=== PATIENT | female | born 1985 | race Caucasian/White ===

== ENCOUNTER → 2018-08-08 10:12 | Outpatient (CLI) | payer OTHER, SELFPAY ==
--- NOTE | 2018-08-08 10:15 | RAD_ITS ---
STUDY: X-RAY - RIGHT WRIST REASON FOR EXAM: Wrist pain. TECHNIQUE: 3 view(s) of the wrist were obtained. COMPARISON: None. FINDINGS: Normal visualized distal radius and ulna. Normal radiocarpal articulation. Normal distal radioulnar articulation. Normal carpal bones. Normal carpal articulations. Normal carpometacarpal articulation of the thumb. Normal second through fifth carpometacarpal articulations. Normal visualized metacarpal bones. The soft tissue structures are unremarkable. RAD/Wrist min 3 Views IMPRESSION: Normal x-ray examination of the right wrist. Electronically Signed: Octaviano Ko MD at 13:17 EDT Tel , Service support ,
== END ==
PROVIDERS: Referring Provider Orthopaedic Surgery; Visit Provider Orthopaedic Surgery
DX: M25.531 Pain in right wrist (principal)
CPT/HCPCS: 73110

== ENCOUNTER → 2019-01-03 16:49 | Outpatient (CLI) | payer MEDICAID, SELFPAY ==
[2018-01-04 10:13] VITALS: BMI 29.8
[2019-01-03 20:41] LABS: Chlamydia Trachomatis by PCR Negative (Negative); Neisserai gonorrhoeae by PCR Negative (Negative); Probe Check PASS; Sample Adequacy Control PASS; Specimen Processing Control PASS
== END ==
PROVIDERS: Visit Provider Obstetrics & Gynecology
DX: Z11.3 Encounter for screening for infections with a predominantly sexual mode of transmission (principal)
CPT/HCPCS: 87491; 87591

== ENCOUNTER → 2019-07-10 | Outpatient (CLI) | payer MEDICAID, SELFPAY ==
[2018-01-04 10:13] VITALS: BMI 29.8
== END | disposition home or self-care (01) ==
LOC: LABSPEC 14:58
PROVIDERS: Visit Provider Obstetrics & Gynecology
DX: Z12.4 Encounter for screening for malignant neoplasm of cervix (principal)

== ENCOUNTER → 2019-08-08 | Outpatient (CLI) | payer MEDICAID, SELFPAY ==
[2018-01-04 10:13] VITALS: BMI 29.8
--- NOTE | 2019-08-08 | IMM_PTH ---
PATIENT: DOUG HOYT LOC: [facility] U#:[id number] AGE/SX: 33/F ROOM: RE08/08/[address]: Dr. 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 Localization is made via biotin free immunoperoxidase method. Appropriate controls are performed and reacted as expected. Results on target cell population are indicated in the following table: RESULTS: ANTIBODY / CLONE RESULT Block A P16 (E6H4) positive, rare cell Ki-67 (30-9) negative These tests were developed and their performance characteristics determined by [facility]. They may not have been cleared or approved by the U.S. Food and Drug Administration. The FDA has determined that such clearance or approval is not necessary. The above immunohistochemical/dualISH markers are ordered and reviewed by the pathologist. INTERPRETATION: A. Cervix, biopsy: Suspicious for focal HPV change. AM:tao 08/10/19
--- NOTE | 2019-08-08 11:15 | CER_PTH ---
PATIENT: DOUG HOYT LOC: [facility] U#:[id number] AGE/SX: 33/F ROOM: RE08/08/[address]: Dr. 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 Cervix, biopsy: Focal HPV change suspected. Squamous metaplasia and mild chronic inflammation. See comment. B. Endocervix, curettings: Strips of benign superficial endocervix. No evidence of dysplasia. AM:tao 08/10/19 COMMENT A. Results from immunohistochemistry ([id number]) for surrogate HPV marker (p16) will be reported separately. MICROSCOPIC DESCRIPTION Slides are reviewed. GROSS DESCRIPTION A - Received in fixative is one container labeled with the patient's name and designated cervical. The specimen consists of one irregular fragment of light rebolledo soft tissue that measures 0.5 x 0.3 x 0.1 cm. The specimen is totally submitted in one cassette. B - Received in fixative is one container labeled with the patient's name and designated ECC. The specimen consists of multiple fragments of hemorrhagic mucoid tissue that in aggregate measure 1.5 x 1 x 0.2 cm. The specimen is totally submitted in one cassette. / SJ:tao 08/09/19 TC: CPT: 63872 x2
== END | disposition home or self-care (01) ==
LOC: LABSPEC 16:13
PROVIDERS: Referring Provider Obstetrics & Gynecology; Visit Provider Obstetrics & Gynecology
DX: R87.612 Low grade squamous intraepithelial lesion on cytologic smear of cervix (LGSIL) (principal)
CPT/HCPCS: 88305; 88341; 88342

== ENCOUNTER → 2019-12-25 | Outpatient (CLI) | payer MEDICAID, SELFPAY ==
[2018-01-04 10:13] VITALS: BMI 29.8
[2019-12-28 14:08] LABS: Age Gdln ACOG Testing 30-65 (.)
[2019-12-28 15:18] LABS: HPV APTIMA, High Risk Negative (Negative)
[2019-12-28 15:19] LABS: HPV Reflexed? YES, CHARGE PATIENT
== END | disposition home or self-care (01) ==
LOC: LABSPEC 13:44
PROVIDERS: Visit Provider Obstetrics & Gynecology
DX: R87.612 Low grade squamous intraepithelial lesion on cytologic smear of cervix (LGSIL) (principal)
CPT/HCPCS: 87624; 88175; G0145

== ENCOUNTER → 2021-02-02 14:25 | Outpatient (CLI) | payer MEDICAID, SELFPAY ==
[2018-01-04 10:13] VITALS: BMI 29.8
[2021-02-06 16:00] LABS: HPV APTIMA, High Risk Negative (Negative)
== END ==
PROVIDERS: Visit Provider Obstetrics & Gynecology
DX: Z12.4 Encounter for screening for malignant neoplasm of cervix (principal)
CPT/HCPCS: 87624; 88175; G0145

== ENCOUNTER → 2021-04-16 16:45 | Outpatient (CLI) | payer MEDICAID, SELFPAY ==
[2018-01-04 10:13] VITALS: BMI 29.8
[2021-04-17 09:30] LABS: HIV - WCH Non-Reactive (Nonreactive); Hepatitis B Surface Antibody Non-Reactive; Hepatitis C Antibody Non-Reactive (Nonreactive); Syphilis Antibodies Non-reactive
[2021-04-19 20:07] LABS: Chlamydia By Nucleic Acid AMP Negative (Negative)
[2021-04-20 08:29] LABS: Gonococcus By Nucleic Acid AMP Negative (Negative)
== END ==
PROVIDERS: Visit Provider Obstetrics & Gynecology
DX: Z11.3 Encounter for screening for infections with a predominantly sexual mode of transmission (principal)
CPT/HCPCS: 36415; 86703; 86706; 86780; 86803; 87491; 87591

== ENCOUNTER → 2022-04-06 | Outpatient (CLI) | payer MEDICAID, SELFPAY ==
[2022-04-09 08:21] LABS: HPV APTIMA, High Risk Negative (Negative)
== END | disposition home or self-care (01) ==
LOC: LABSPEC 11:23
PROVIDERS: Visit Provider Obstetrics & Gynecology
DX: Z12.4 Encounter for screening for malignant neoplasm of cervix (principal)
CPT/HCPCS: 87624; 88175; G0145

== ENCOUNTER → 2025-01-09 | Outpatient (CLI) | payer MEDICAID, SELFPAY ==
--- NOTE | 2025-01-09 15:40 | BI_ITS ---
PROCEDURE: SCRN MAMM (CAD)W/SARA BILAT REASON FOR EXAM: F, Age 39 y/o , mother with breast cancer. Routine annual follow-up. TECHNIQUE: Bilateral screening digital breast tomosynthesis with 2D and 3D images. Computer aided detection. COMPARISON: Prior exam(s) dating back to February 07, 2014. FINDINGS: The breasts are heterogeneously dense which may obscure small masses. Stable examination. Stable small bilateral axillary lymph nodes. No suspicious masses, areas of developing architectural distortion, or suspicious calcifications. BI/SCRN MAMM (CAD)W/SARA BILAT IMPRESSION: BI-RADS 2: BENIGN. RECOMMEND ANNUAL MAMMOGRAPHIC SCREENING. Follow-up code: Routine Follow-up The patient will be notified of the results by letter. Reading Location: [id number]
== END | disposition home or self-care (01) ==
LOC: OPBI 15:37
PROVIDERS: Referring Provider Family Medicine; Visit Provider Family Medicine
DX: Z12.31 Encounter for screening mammogram for malignant neoplasm of breast (principal)
CPT/HCPCS: 77063; 77067

== ENCOUNTER → 2025-09-23 | Outpatient (CLI) | payer MEDICAID, SELFPAY ==
--- OUTSIDE RECORDS SUMMARY | 2025-09-23 19:16 | XMS RPT_ITS | CCD ---
Author Organization [facility] Care Team Providers Care Gravity Prospector Name Role Phone DAVID ROBERTS Attending DAVID Woods Consulting DAVID Woods Primary Care Unavailable DAVID ROBERTS Admitting Unavailable PROVIDER, UNKNOWN Consulting David Altamirano Referring Unavailable David Cerna Attending Unavailable Care Physician, No Primary Primary Care Unava ilable Care Physician, No Primary Primary Care Provider David Woods PA-C Attending Provider David Roberts PA-C Referring Provider [phone] Allergies Allergy Classification Reported Allergen(s) Allergy Type Date of Onset Reaction(s) Facility (2 sources) Amoxicillin Drug Allergy 8 skin rash [facility] (2 sources) Clavulanate Drug Allergy 8 skin rash [facility] (1 source) medical tape Allergy to substance 8 mild irritation [facility] Work Phone: (1 source) Amoxicillin Drug Allergy 8 [facility] (1 source) Clavulanate Drug Allergy 8 [facility] Medications Current Medications Medication Drug Class(es) Dates Sig (Normalized) Sig (Original) acyclovir 400 mg oral tablet (2 sources) Herpesvirus Nucleoside Analog DNA Polymerase Inhibitor, Herpes Simplex Virus Nucleoside Analog DNA Polymerase Inhibitor, Herpes Zoster Virus Nucleoside Analog DNA Polymerase Inhibitor Start: 12-27-2017 take 400 mg by mouth once daily Acyclovir Active 400 MG PO daily December 27, 2017 3:29pm clindamycin 300 mg oral capsule (2 sources) Lincosamide Antibacterial Start: 01-04-2018 take 1 capsule by mouth three times daily Clindamycin Hcl (Cleocin Hcl) 300 mg capsule Active 300 MG PO THREE TIMES A DAY 42 January 04, 2018 11:43am Norethindrone-E.Es tradiol-Iron (2 sources) Estrogen Start: 12-27-2017 take 1 tablet by mouth once daily Norethindrone-E.E stradiol-Iron (Microgestin Fe 1.5/30 (28)) 1.5 mg-30 mcg (21)/75 mg (7) tablet Active 1 TABLET PO daily December 27, 2017 3:30pm Start: 12-27-2017 take 1 tablet by mark th once daily Norethindrone-E.Estradiol-Iron (Microges tin Fe 1.5/30 (28)) 1.5 mg-30 mcg (21)/75 mg (7) tablet Active 1 {tbl} PO daily December 27, 2017 1:00am hydroCHLOROthiazide 50 mg oral tablet (2 sources) Thiazide Diuretic Start: 12-27-2017 take 50 mg by mouth once daily in the morning Hydrochlorothiazide Active 50 MG PO EVERY MORNING December 27, 2017 3:27pm metoprolol tartrate 100 mg oral tablet (2 sources) beta-Adrenerg ic Rachael Start: 12-27-2017 take 100 mg by mouth once daily Metoprolol Tartrate Active 100 MG PO daily December 27, 2017 3:26pm potassium chloride 10 meq extended release oral tablet (2 sources) Start: 12-27-2017 Potassium Chloride (Klor-Con 10) 10 mEq tablet extended release Active 10 MEQ PO daily December 27, 2017 3:24pm thyroid (retirement) 15 mg oral tablet (2 sources) Start: 12-27-2017 take 1 tablet by mouth once daily Thyroid (Pork) (Dampener Operator Thyroid) 15 mg tablet Active 15 MG PO daily December 27, 2017 3:28pm Problems Problem Classification Problem Date Documented Date Episodic/Chronic Nonmalignant breast conditions (4 sources) Lump of subareolar area of left breast; Translations: [Unspecified lump in left breast, subareolar] 01-04-2018 Episodic Comment on above: retroareolar area Other screening for suspected conditions (not mental disorders or infectious disease) (3 sources) Encounter for screening for diabetes mellitus; Translations: [Encounter for screening for cardiovascular disorders] Onset: 01-03-2025 Episodic Screening and history of mental health and substance abuse codes (2 sources) Ex-smoker; Translations: [Personal history of nicotine dependence] 04-10-2018 Episodic Results Test Name Value Interpretation Reference Range Facil ity Breast imaging reportOrdered By: Jesús Merrill on 01-10-2025 Study report [facility] Imaging Services [address] [place], [place] [id number] SCRN MAMM (CAD)W/SARA BILAT MR#: [id number] Acct: [id number] Name: DOUG HOYT Rep #: [id number] : 1985 F 39 From: John Merrill MD PCP: Care Physician,No Primary Status: REG CLI Study:SCRN MAMM (CAD)W/SARA BILAT Date of Exa m: 01/09/25 Exam# [id number] Ordering Dr: Deejay Roberts PA-C ADDENDUM by Dr. Jesús Merrill MD on 01/10/25 at 1347 No addendum needed. Reading Location: [id number] 01/10/25 1347 Date cc: MANDI Roberts; No Primary Care Physician ~* Signed PROCEDURE: SCRN MAMM (CAD)W/SARA BILAT REASON FOR EXAM: F, Age 39 y/o , mother with breast cancer. Routine annual follow-up. TECHNIQUE: Bilateral screening digital breast tomosynthesis with 2D and 3D images. Computeraided detection. COMPARISON: Prior exam(s) dating back to February 07, 2014. FINDINGS: The breasts are heterogeneously dense which may obscure small masses. Stable examination. Stable small bilateral axillary lymph nodes. No suspicious masses, areas of developing architectural distortion, or suspicious calcifications. BI/SCRN MAMM (CAD)W/SARA BILAT IMPRESSION: BI-RADS 2: BENIGN. RECOMMEND ANNUAL MAMMOGRAPHIC SCREENING. Follow-up code: Routine Follow-up The patient will be notified of the results by letter. Reading Location: [id number] CC: MANDI Roberts; No Primary Care Physician ~ Automation Qa Lead: Signed [facility] SCRN MAMM (CAD)W/SARA BILATo n 01-09-2025 SCRN MAMM (CAD)W/SARA BILAT [facility] Imaging Services [address] [place] [address] SCRN MAMM (CAD)W/SARA BILAT MR#: [id number] Acct: [id number] Name: DOUG HOYT Rep #: [id number] : 1985 F 39 From: Jesús tavera MD PCP: Care Physician,No Primary Status: REG CLI Study: SCRN MAMM (CAD)W/SARA BILAT Date of Exam: 03/31 Exam# [id number] Ordering Dr: David Roberts ADDENDUM by Dr. Jesús Merrill MD on 01/10/25 at 1347 No addendum needed. Reading Location: [id number] 01/10/25 1347 Date cc: MANDI Roberts; No Primary Care Physician * Signed PROCEDURE: SCRN MAMM (CAD)W/SARA BILAT REASON FOR EXAM: F, Age 39 y/o , mother with breast cancer. Routine annual follow-up. TECHNIQUE: Bilateral screening digital breast tomosynthesis with 2D and 3D images. Computer aided detection. COMPARISON: Prior exam(s) dating back to February 07, 2014. FINDINGS: The breasts are heterogeneously dense which may obscure small masses. Stable examination. Stable small bilateral axillary lymph nodes. No suspicious masses, areas of developing architectural distortion, or suspicious calcifications. BI/SCRN MAMM (CAD)W/SARA BILAT IMPRESSION: BI-RADS 2: BENIGN. RECOMMEND ANNUAL MAMMOGRAPHIC SCREENING. Follow-up code: Routine Follow-up The patient will be notified of the results by letter. Reading Location: [id number] CC: MANDI Roberts; No Primary Care Physician Automation Qa Lead: Signed Normal [facility] CMP with eGFRon 01-03-2025 AGE 39 years Normal [facility] Comment on above: Performed By: #### 2 [id number] #### [facility],[address] [place] [address] 19538 Albumin [Mass/Vol] 3.9 g/dL Normal 3.4 - 5.0 [facility] Comment on above: Performed By: #### 2 20563 #### [facility],[address] [place] [address] 45789 Albumin/Globulin [Mass ratio] 1.2 {ratio} Normal 0.9 - 1.6 [facility] Comment on above: Performed By: #### 2 92017 #### [facility],[address] [place] [address] 12556 ALK PHOS 57 U/L Normal 46 - 116 [facility] Comment on above: Performed By: #### 2 05574 #### [facility],[address] [place] [address] 75602 ALT [Catalytic activity/Vol] 33 U/L Normal 16 - 63 [facility] Comment on above: Performed By: #### 2 74075 #### [facility],[address] [place] [address] 31377 Anion gap [Moles/Vol] 13 mmol/L Normal 10 - 20 [facility] Comment on above: Performed By: #### 2 18446 #### [facility],[address] [place] [address] 94634 AST [Catalytic activity/Vol] 25 U/L Normal 13 - 39 [facility] Comment on above: Performed By: #### 2 63638 #### [facility],[address] [place] [address] 94595 B/C RATIO 13 ratio Normal 0 - 30 [facility] Comment on above: Performed By: #### 2 59906 #### [facility],[address] [place] [address] 78165 Bilirubin [Mass/Vol] 0.5 mg/dL Normal 0.2 - 1.0 [facility] Comment on above: Performed By: #### 2 58532 #### [facility],[address] [place] [address] Calcium [Mass/Vol] 9.5 mg/dL Normal 8.5 - 10.1 [facility] Comment on above: Performed By: #### 2 67845 #### [facility],[address] [place] [address] Chloride [Moles/Vol] 102 mmol/L Normal 98 - 107 [facility] Comment on above: Performed By: #### 2 20605 #### [facility],[address] [place] [address] CMP with eGFR Normal [facility] Comment on above: Result Comment: COMP REHENSIVE METABOLIC PANEL Performed By: #### 2 20021 #### [facility],[address] [place] [address] CO2 [Moles/Vol] 29.3 mmol/L Normal 21.0 - 32.0 [facility] Comment on above: Performed By: #### 2 22629 #### [facility],[address] [place], [place] [address] Creatinine [Mass/Vol] 0.78 mg/dL Normal 0.55 - 1.02 [facility] Comment on above: Performed By: #### 2 61901 #### [facility],[address] [place], [place] [address] GFR/1.73 sq M.predicted among non-blacks MDRD (S/P/Bld) [Vol rate/Area] mL/min/{1.73_m2} Normal 60 - 999 [facility] Comment on above: Performed By: #### 2 79933 #### [facility],[address] [place] [address] Result Comment: ACCO RDING TO THE NATIONAL KIDNEY DISEASE EDUCATION PROGRAM(NKDE), A NORMAL eGFR IS A VALUE GREATER THAN OR EQUAL TO 60 ML/MIN/1.73 SQ METERS. CHRONIC KIDNEY DISEASE: <60mL/MIN/1.73 SQ METERS KIDNEY FAILURE: <15mL/MIN/1.73 SQ METERS THIS TEST SHOULD ONLY BE USED FOR PATIENTS 18 YEARS OF AGE AND OLDER. Globulin (S) [Mass/Vol] 3.3 g/dL Normal 1.5 - 3.8 [facility] Comment on above: Performed By: #### 2 90123 #### [facility],[address] [place] [address] 90116 Glucose [Mass/Vol] 95 mg/dL Normal 74 - 106 [facility] Comment on above: Performed By: #### 2 02618 #### [facility],[address] [place] [address] 63491 Potassium [Moles/Vol] 3.4 mmol/L Low 3.5 - 5.1 [facility] Comment on above: Performed By: #### 2 38167 #### [facility],[address] [place] [address] 12401 Protein [Mass/Vol] 7.2 g/dL Normal 6.4 - 8.2 [facility] Comment on above: Performed By: #### 2 53259 #### [facility],[address] [place] [address] 62300 Sodium [Moles/Vol] 141 mmol/L Normal 136 - 145 [facility] Comment on above: Performed By: #### 2 42610 #### [facility],[address] [place] [address] 70164 Urea nitrogen [Mass/Vol] 10 mg/dL Normal 7 - 18 [facility] Comment on above: Performed By: #### 2 61777 #### [facility],[address] [place] [address] 24025 LIPID PROFILEon 01-03-2025 Cholesterol [Mass/Vol] 183 mg/dL Normal 0 - 240 [facility] Comment on above: Performed By: #### 2 23691 #### [facility],[address] [place] [address] 06436 Cholesterol in HDL [Mass/Vol] 45 mg/dL Normal 40 - 60 [facility] Comment on above: Performed By: #### 2 37381 #### [facility],[address] [place] [address] 40612 Cholesterol in LDL [Mass/Vol] 112 mg/dL Normal 0 - 129 [facility] Comment on above: Performed By: #### 2 70933 #### [facility],[address] [place] [address] 18936 Cholesterol.total/C holesterol in HDL [Mass ratio] 4.1 {ratio} Normal 0.0 - 5.0 [facility] Comment on above: Performed By: #### 2 04834 #### [facility],[address] [place] [address] 05510 Lipid 1996 panel Normal [facility] Comment on above: Result Comment: LIPI D PROFILE Performed By: #### 2 48525 #### [facility],[address] [place] [address] 26391 Triglyceride [Mass/Vol] 132 mg/dL Normal 0 - 150 [facility] Comment on above: Performed By: #### 2 02113 #### [facility],[address] [place] [address] 14368 Cervical or vagninal specime n microscopic examination by cytology stain (reported ason 04-06-2022 Cytology report Cyto stain Doc (Cvx/Vag) Comment [facility] Work Phone: Comment on above: The Pap smear is a s creening test designed to aid in thedetection of premalignant and malignant conditions of theuterine cervix. It is not a diagnostic procedure andshould not be used as the sole means of detecting cervicalcancer. Both false-positive and false-negative reports dooccur. Detection in cervical specim en of any of human papilloma virus (HPV) 16, 18, 31, 33,on 04-06-2022 HPV 16+18+31+33+35+39+4 5+51+52+56+58+59+66 +68 DNA Probe+sig amp Ql (Cvx) Negative Negative [facility] Work Phone: Comment on above: This nucleic acid am plification test detects fourteen high- risk HPV types (16,18,31,33,35,39,45,51,52,56,58,59,66,68)without differentiation.Performed at: [facility] [id number] Director: Heydi Molina MD, Phone: [phone] at: =G - [facility] [id number] Director: Heydi Molina MD, Phone: [phone] Laboratory - Cytologyon 03-09 Extended Insurance Clerk Cyto stain Nom (Cvx/Vag) [ID] Comment [facility] Work Phone: Comment on above: Cely Robert, Cyto technologist (ASCP) Laboratory - Miscellaneous t estson 04-06-2022 Service comment (Unsp spec) [Interp] Comment [facility] Work Phone: Comment on above: This liquid based Th inPrep(R) pap test was screened withthe use of an image guided system. Service comment (Unsp spec) [Interp] . [facility] Work Phone: No Panel Informationon 04-06 Pathology report final diagnosis Narrative Comment [facility] Work Phone: Comment on above: NEGATIVE FOR INTRAEP ITHELIAL LESION OR MALIGNANCY.PREDOMINANCE OF COCCOBACILLI CONSISTENT WITH SHIFT IN VAGINAL NEREIDA ISPRESENT.CELLULAR CHANGES ASSOCIATED WITH INFLAMMATION ARE PRESENT. Encounters Encounter Date Encounter Type Care Provider Facility Start: 01-09-2025 End: 01-09-2025 ambulatory No Primary Care Physician [facility] Work Phone: Start: 01-09-2025 End: 01-09-2025 Patient encounter procedure David Roberts PA-C -[facility] Work Phone: Start: 01-09-2025 End: 01-09-2025 ambulatory [facility] Facility:[facility] Start: 01-03-2025 End: 01-03-2025 ambulatory [facility] Start: 04-06-2022 End: 04-06-2022 Patient encounter procedure [facility]-Laboratory, Specimen Procedures Date Procedure Procedure Detail Performing Clinician Start: 01-09-2025 Screening mammography N o Primary Care Physician Payers Date Payer Category Payer Self-pay [id number] 2021 Medicaid [id number] 1985 Unknown [id number] Unknown [id number] Unknown [id number] Unknown [id number] Social History Date Type Detail Facility [facility]: [facility]07-[facility] Work Phone: Start: 1985 Sex Assigned At Female [facility] Start: 09-07-2018 [facility] Start: 01-19-2025 Sex Female (finding) [facility] Clinical Note 04-06-2022 Note Date & Type Note Facility 04-06-2022 Note [facility] Work Phone: Pap Smear Specimen Adequacy April 06, 2022 11:10am Comment Satisfactory for evaluation. Endocervical and/or squamous metaplasticcells (endocervical component) are present. Comment on above: Satisfactory for robin luation. Endocervical and/or squamous metaplasticcells (endocervical component) are present. Evaluation note Note Date & Type Note Facility Evaluation note No assessment information availa ble [facility] Work Phone: Reason for referral (narrative) Note Date & Type Note Facility Reason for referral (narrative) No reason for referral information available [facility] Work Phone: Family History Relationship Condition Age at Onset Recorded Date/T yudi mother Diabetes mellitus Unknown uncle Complication of anesthesia Unknown aunt Arthritis Unknown Diabetes mellitus Unknown grandmother Arthritis Unknown Hypertension Unknown Malignant melanoma Unknown Summary Purpose Advance Directives No Advanced Directives Records FoundNo Advanced Directives Records Found Chief Complaint and Reason for Visit Chief Complaint Admit Date SCREENING January 09, 2025 3:03 pm Additional Source Comments Goals (unrecognized section and content) Goals may be documented in a n alternate sectionGoals may be documented in an alternate section INFORMATION SOURCE (unrecogn ized section and content) DATE CREATED AUTHOR 01/03/2025 [facility] DATE CREATED AUTHOR AUTHOR'S ORGANIZ ATION 01/22/2025 [facility] Care Teams (unrecognized sec tion and content) Team Status: Active Member Role Status Dates No Primary Care Physician Primary Care Provider Active Team Status: Inactive Member Role Status Dates No Primary Care Physician Primary Care Provider Active Start: January 09, 2025 End: January 09, 2025 Davidfritz SANTOS PA-C Attending Provider Active Start: January 09, 2025 End: January 09, 2025 [facility] MANDI SANTOS Referring Provider Active Start: January 09, 2025 End: January 09, 2025 FOR RECORDS PERTAINING TO PATIENTS WHO ARE OR HAVE BEEN ENROLLED IN A CHEMICAL DEPENDENCY/SUBSTANCEABUSE PROGRAM, SOME INFORMATION MAY BE OMITTED. This clinical summary was aggregated from multiple sources. Caution should be exercised in using it in the provision of clinical care. This summary normalizes information from multiple sources, and as a consequence, information in this document may materially change the coding, format and clinical context of patient data. In addition, data may be omitted in some cases. CLINICAL DECISIONS SHOULD BE BASED ON THE PRIMARY CLINICAL RECORDS. [facility] [employer] [facility]. provides no warranty or guarantee of the accuracy or completeness of information in this document.
[2025-09-27 11:09] LABS: HPV APTIMA, High Risk Negative (Negative)
== END | disposition home or self-care (01) ==
LOC: LABSPEC 16:57
PROVIDERS: Referring Provider Nurse Practitioner Family; Visit Provider Nurse Practitioner Family
DX: Z12.4 Encounter for screening for malignant neoplasm of cervix (principal)
CPT/HCPCS: 87624; 88175; G0145